=== PATIENT | male | born 1995 | race Caucasian/White ===

== ENCOUNTER 2019-08-11 14:16 | Emergency (ER) | payer OTHER ==
[~2019-08-11] VITALS: Ht 180.3 cm; Wt 88.0 kg
--- NOTE | 2019-08-11 16:10 | REP ---
RIGHT FEMUR, AP AND LATERAL: AP and lateral views of the right femur were performed. No fracture is seen. There appears to be lateral patellar dislocation. No other abnormalities are seen. Electronically Signed by Kojo Dominguez MD 08/12/2019 10:32 A
--- NOTE | 2019-08-11 16:11 | REP ---
RIGHT KNEE, AP AND LATERAL: AP and lateral views of the right knee are performed. No acute fracture is seen. Patella appears somewhat laterally located but not as severe as on the images of the right femur. There may be some degree of lateral patellar subluxation. Clinical correlation suggested. Electronically Signed by Kojo Dominguez MD 08/12/2019 10:32 A
[2019-08-11] MEDS ORDERED: diazePAM 10 MG/2 ML INJ (J3360) IV ONE (16:30)
[2019-08-11] MEDS ORDERED: MORPHINE 4 MG/ML 1ML VIAL/SYRINGE (J2270) IV ONE (16:30)
[2019-08-11 16:48] VITALS: BP 132/69
[2019-08-11] MEDS ORDERED: IBUP-1022 PO (16:53)
== END 2019-08-11 17:20 | disposition home or self-care (01) ==
LOC: EDBD 14:16 → M ED 14:16
DX: S83.014A Lateral dislocation of right patella, initial encounter (principal); S83.91XA Sprain of unspecified site of right knee, initial encounter; X50.1XXA Overexertion from prolonged static or awkward postures, initial encounter; Y92.89 Other specified places as the place of occurrence of the external cause; Y93.89 Activity, other specified; Y99.0 Civilian activity done for income or pay
CPT/HCPCS: 27560; 73552; 73560; 96374; 96375; 99284; J2270; J3360